=== PATIENT | male | born 1970 | race Two or more races ===

== ENCOUNTER 2024-01-28 13:33 | Emergency (ER) | payer OTHER ==
[~2024-01-28] VITALS: Ht 185.4 cm; Wt 99.8 kg
[2024-01-28 13:55] VITALS: BP 241/167; PULSE 114; RESP 18; O2SAT 99
[2024-01-28 13:58] LABS: BASOPHILS % (AUTO) 0.3 % (0.0-2.0); EOSINOPHILS % (AUTO) 0.1 % (0.0-4.0); HEMATOCRIT 39.7 % (36-52); HEMOGLOBIN 13.1 g/dL (12.0-18.0); LYMPHOCYTES # (AUTO) 0.7 K/uL (2.0-11.5); MEAN CORPUSCULAR HEMOGLOBIN 28 pg (27-31); MEAN CORPUSCULAR HGB CONC 33 g/dL (33-37); MONOCYTES # (AUTO) 0.9 K/uL (0.8-1.0); MONOCYTES % (AUTO) 7.3 % (1.7-9.3); NEUTROPHILS # (AUTO) 10.3 K/uL (1.8-7.7); NEUTROPHILS % (AUTO) 86.3 % (42.2-75.2); PLATELET COUNT (AUTO) 239 K/uL (140-450); RED BLOOD CELL COUNT(AUTO) 4.67 MIL/uL (4.20-6.10); RED CELL DISTRIBUTION WIDTH 15.8 % (11.6-13.7)
[2024-01-28 14:13] LABS: ANION GAP 14.2 (8-16); CALCIUM 9.1 mg/dL (8.5-10.1); CARBON DIOXIDE 25.6 mmol/L (21-32); CREATININE 2.6 mg/dL (0.6-1.3); POTASSIUM 3.8 mmol/L (3.5-5.1)
[2024-01-28 14:19] LABS: INR 1.02 (0.8-1.2); PARTIAL THROMBOPLASTIN TIME 26.9 secs (22-35.6); PROTHROMBIN TIME 10.7 secs (10.8-13.4)
[2024-01-28] MEDS: NACL 0.9% 1,000 ML IV ONE (14:29)
[2024-01-28] MEDS: LABETALOL 20 MG/4 ML VIAL IVP ONE (14:56)
[2024-01-28] MEDS ORDERED: LABETALOL 20 MG/4 ML VIAL IVP ONE (16:15)
[2024-01-28 16:49] VITALS: BP 209/142; PULSE 107; RESP 12; O2SAT 94
== END 2024-01-28 16:49 | disposition left against medical advice (07) ==
LOC: MED 13:33
DX: I16.1 Hypertensive emergency (principal); N17.9 Acute kidney failure, unspecified; R79.89 Other specified abnormal findings of blood chemistry; Z88.6 Allergy status to analgesic agent
CPT/HCPCS: 36415; 71045; 80048; 83880; 84443; 84484; 85025; 85610; 85730; 93005; 96361; 96374; 99291; J3490